=== PATIENT | male | born 1970 | race Two or more races ===

== ENCOUNTER 2017-04-08 23:03 | Emergency (ER) | payer SELFPAY ==
[2017-04-08 23:49] LABS: Basophils # (auto) 0 uL; Basophils % (auto) 0.2 % (0.0-2.0); Eosinophils # (auto) 0.1 uL; Eosinophils % (auto) 1.5 % (0.0-7.0); Hematocrit 41.2 % (41.0-53.0); Hemoglobin 14.1 g/dL (13.5-17.5); Lymphocytes # (auto) 1.5 uL; Lymphocytes % (auto) 15.7 % (10.0-50.0); Mean Corpuscular Hemoglobin 30.8 pg (28.0-32.0); Mean Corpuscular Hgb Conc. 34.3 g/dL (32.0-36.0); Mean Corpuscular Volume 89.8 fL (80.0-100.0); Monocytes # (auto) 0.5 uL; Monocytes % (auto) 5.2 % (0.0-12.0); Neutrophils # (auto) 7.3 uL; Neutrophils % (auto) 77.4 % (37.0-80.0); Platelet Count (auto) 284 10^3/uL (140-450); Red Blood Cells 4.59 10^6/uL (4.5-5.90); Red Cell Distribution Width 12.5 % (11.8-14.3); White Blood Cell 9.5 10^3/uL (4.4-10.8)
[2017-04-09 00:13] VITALS: BP 123/79
[2017-04-09] MEDS ORDERED: cefTRIAXone SOD 1,000 MG VL IM ONE (00:30)
[2017-04-09 00:38] LABS: Albumin 3.7 g/dL (3.4-5.0); Calcium 8.4 mg/dL (8.5-10.1); Potassium 3.9 mmol/L (3.5-5.1)
[2017-04-09 00:39] LABS: BUN/Creatinine Ratio 12.8
[2017-04-09 00:41] LABS: Bilirubin, Total 0.6 mg/dL (0.2-1.0)
== END 2017-04-09 01:56 | disposition home or self-care (01) ==
LOC: ER 23:06
DX: L03.115 Cellulitis of right lower limb (principal)
CPT/HCPCS: 36415; 80053; 83605; 85025; 87040; 96372; 99284; J0696